=== PATIENT | female | born 1965 | race Caucasian/White ===

== ENCOUNTER 2024-12-23 12:47 | Emergency (ER) | payer OTHER, SELFPAY ==
[2024-12-23 12:57] VITALS: BP 106/73; PULSE 65; TEMP 36.6; O2SAT 100; BMI 20.8
--- NOTE | 2024-12-23 13:19 | ED.WOUNDLAC1 ---
HPI - Wound/Laceration General Chief Complaint: Wound/Laceration Stated Complaint: TICK IN BACK OF HEAD Time Seen by Provider: 12/23/24 13:09 Source: patient Mode of arrival: walk-in Limitations: no limitations History of Present Illness HPI narrative: 59-year-old female presents to the emergency department with complaint of tick bite. States tick is still embedded in the back of her scalp. Has felt a little tired over the past couple days. Unsure how long the tick has been there. Noted the tick today. Denies any other complaints. Quality:?as above Severity:?Mild Timing:?as above Context: Normal setting and activity? Modifying factors:?None Associated symptoms: as above Related Data Allergies Allergy/AdvReac Type Severity Reaction Status Date / Time Sulfa (Sulfonamide Allergy Mild Rash Verified 12/23/24 13:04 Antibiotics) Review of Systems ROS Narrative CONST: Denies diaphoresis, weakness MS: Denies arthralgias, myalgias SKIN:? +wound.? Denies swelling NEURO: Denies weakness, numbness, paresthesias PFSH PFSH Social History Little interest or pleasure in doing things: not at all Feeling down, depressed, or hopeless: not at all Exam Narrative Exam Narrative: Vital signs noted Nurses notes reviewed CONST: Nontoxic, well appearing, well nourished, in no distress.? No diaphoresis.?? HENT: normocephalic, NEURO: No gross focal deficits SKIN: + tick embeded in the left occipital scalp PSYCHIATRIC: normal mood, affect Constitutional Vital Signs, click to edit/add: Last Vital Signs Temp 97.8 F 12/23/24 12:57 Pulse 65 12/23/24 12:57 Resp 20 12/23/24 12:57 BP 106/73 12/23/24 12:57 Pulse Ox 100 12/23/24 12:57 O2 Del Method Room Air 12/23/24 12:57 Course Vital Signs Vital signs: Vital Signs Temperature 97.8 F 12/23/24 12:57 Pulse Rate 65 12/23/24 12:57 Respiratory Rate 20 12/23/24 12:57 Blood Pressure 106/73 12/23/24 12:57 Pulse Oximetry 100 12/23/24 12:57 Oxygen Delivery Method Room Air 12/23/24 12:57 Temperature 97.8 F 12/23/24 12:57 Pulse Rate 65 12/23/24 12:57 Respiratory Rate 20 12/23/24 12:57 Blood Pressure 106/73 12/23/24 12:57 Pulse Oximetry 100 12/23/24 12:57 Oxygen Delivery Method Room Air 12/23/24 12:57 MDM - Wound/Laceration MDM Narrative Medical decision making narrative: This is a pleasant 59 y/o female who presents to the emergency department for evaluation of tick bite On arrival, afebrile, vitals stable Exam, nontoxic, well-appearing patient in no distress. Tick embedded, located to the left occipital region of her scalp Tick removed without complication. See procedure note Favor tick bite, embedded History and Record Review Additional records reviewed: No records, patient is from [place] ReEvaluation Patient doing well after tick removal Patient states her Tetanus is up to date. She was given prophylactic 200 mg dose of doxycycline Disposition ? The patient was discharged. Plan: Patient will be discharged to home.? Condition at time of disposition: stable, improved.? Advised to follow up with referral provider, name and number placed on discharge paperwork. Advised to return for any worsening and/or development of new, concerning signs or symptoms PLEASE NOTE: Portions of the medical record may have been produced using electronic linderman machine operator and may contain errors with respect to translation of words which may not have been identified prior to finalization of the chart. Discharge Plan Discharge Chief Complaint: Wound/Laceration Clinical Impression: Tick bite Patient Disposition: Home, Self-Care Time of Disposition Decision: 13:31 Condition: Good Mode of Transportation: Private Vehicle Print Language: Kyrgyz Instructions: Tick Bite (ED) Referrals: Allen Hall MD [Physician, Family Practice] - 1 week Procedures ED FB Foreign Body Removal Foreign Body Removal Time out performed: yes Foreign Body Removal Site: other (scalp) Description of foreign body: insect (tick) Sedation/Analgesia: none Technique: removal with forceps Confirmed by: direct visualization Complications: none Post-procedure exam: awake, alert Additional Comments: tick completely intact after removal
[2024-12-23] MEDS: DOXYCYCLINE MONOHYDRATE 100 MG CAPSULE 200 MG PO (13:43)
== END 2024-12-23 13:45 | disposition home or self-care (01) ==
PROVIDERS: Emergency Provider Emergency Medicine
DX: S00.06XA Insect bite (nonvenomous) of scalp, initial encounter (principal); W57.XXXA Bitten or stung by nonvenomous insect and other nonvenomous arthropods, initial encounter
CPT/HCPCS: 99283